=== PATIENT | female | born 1970 | race Caucasian/White ===

== ENCOUNTER 2016-08-18 15:06 | Emergency (ER) | payer MEDICAID, OTHER ==
[~2016-08-18] VITALS: Ht 170.2 cm; Wt 120.0 kg
[~2016-08-18 15:06] MED LIST: ATOR40TA49 PO; BUSP10 PO; GABA600T PO; HYDR-3580 PO; HYDR1CAP30 PO; LATU80TA PO; LEVO50TA4 PO; LURA20TA PO; MORP1INJ45 PO; OMEP20TA39 PO; SERT-132 PO; VITA60003
[2016-08-18 15:08] VITALS: BP 137/68; PULSE 92; RESP 14; TEMP 98.3; O2SAT 96
--- NOTE | 2016-08-18 16:47 | RADRPT ---
EXAM DATE/TIME: 08/18/2016 16:39 [facility] COMPARISON: No previous studies available for comparison. INDICATIONS : Right hand, fifth digit pain after fall in shower. MEDICAL HISTORY : None. SURGICAL HISTORY : None. ENCOUNTER: Initial ACUITY: 1 day PAIN SCORE: 7/10 LOCATION: Right hand, distal fifth digit FINDINGS: Examination of the fifth digit of the right hand demonstrates no evidence of fracture or dislocation. No radiopaque foreign bodies are seen. The soft tissues are intact. CONCLUSION: Unremarkable examination of the right fifth finger. Chandler Mead MD on August 18, 2016 at 16:45 Board Certified Radiologist. This report was verified electronically.
--- NOTE | 2016-08-18 16:58 | RADRPT ---
EXAM DATE/TIME: 08/18/2016 16:32 [facility] COMPARISON: No previous studies available for comparison. INDICATIONS : Pelvic pain after fall in shower. MEDICAL HISTORY : None. SURGICAL HISTORY : None. ENCOUNTER: Initial ACUITY: 1 day PAIN SCORE: 7/10 LOCATION: Bilateral pelvis FINDINGS: A single frontal view of the pelvis demonstrates no evidence of fracture. The bony pelvic ring is in tact. Bony mineralization is normal. The soft tissues are intact. Mild to moderate arthropathy is seen in joints. There is joint space narrowing with subchondral scler osis and mild marginal spurring. CONCLUSION: No evidence of acute fracture. Mild to moderate hip arthropathy. Troy Baugh MD on August 18, 2016 at 16:55 Board Certified Radiologist. This report was verified electronically.
--- NOTE | 2016-08-18 17:00 | RADRPT ---
EXAM DATE/TIME: 08/18/2016 16:33 [facility] COMPARISON: No previous studies available for comparison. INDICATIONS : Lower back pain after fall in shower. MEDICAL HISTORY : None. SURGICAL HISTORY : None. ENCOUNTER: Initial ACUITY: 1 day PAIN SCORE: 7/10 LOCATION: Bilateral lower back FINDINGS: There are five non-rib bearing vertebral bodies. The vertebral bodies are in normal alignment withou t evidence of subluxation or scoliosis. Mild to moderate degenerative disc disease is noted at L4-5 a nd L5-S1. The posterior elements are intact without evidence of spondylolysis. Mild to moderate facet arthropathy is identified at L4-5 and L5-S1. There is joint space narrowing with mild subchondral sc lerosis. The pedicles are intact. Bony mineralization is normal. No fracture is identified. CONCLUSION: Mild to moderate degenerative disc disease and facet arthropathy in the lower lumbar spine. No acute abnormality noted. Troy Baugh MD on August 18, 2016 at 16:57 Board Certified Radiologist. This report was verified electronically.
--- NOTE | 2016-08-18 17:17 | PD ---
HPI Chief Complaint: Back/ Neck Pain or Injury Time Seen by Provider: 15:47 Travel History International Travel<30 days: No Contact w/Intl Traveler<30days: No Traveled to known affect area: No History of Present Illness HPI This Is a 46-year-old woman presents to the emergency department complaining of pelvic pain after she fell in the bathtub last night. Pain is deep in the pelvis. Multiple back surgeries in the past. Pain is worse on the left side. She has some poor function left leg ever since her multiple back surgeries. She is no numbness or tingling. No weakness. No other complaints. History Past Medical History Narrative Medical Multiple back surgeries Tetanus Vaccination: < 5 Years Influenza Vaccination: Yes LMP: 07/26/16 Menopausal: Yes : 1 Para: 1 Social History Alcohol Use: No Tobacco Use: No Allergies-Medications (Allergen,Severity, Reaction): Coded Allergies: Tylenol (Verified Adverse Reaction, Intermediate, ELEVATED LIVER ENZYMES, 08/18/16) *MDRO Multi-Drug Resistant Organism (Verified Adverse Reaction, Unknown, ) MRSA finger 2004. MRSA PCR Screen negative 02/27/15. Reported Meds & Prescriptions Reported Meds & Active Scripts Active Levothyroxine (Levothyroxine Sodium) 50 Mcg Tab 50 Mcg PO DAILY must get labs done before next refill Z.0.hm Bceradcrmp39 20 Mg Tab 20 Mg PO DAILY Z.0.lipitor 40 Mg T4 40 Mg Tab 40 Mg PO HS Reported Z.4.morphine Sulfat1 15 Mg Tab 15 Mg PO TID Buspar 10 Mg Ta10 Mg 10 Mg Tab 10 Mg PO BID Yhbuon25 M1 80 Mg Tab 80 Mg PO DAILY Z.0.adecro62 Mg 20 Mg Tab 20 Mg PO DAILY TAKE WITH FOOD (350 CALORIES OR MORE) Vitamin E6000 Unit 6,000 Unit Cre 400 DAILY Z.0.hydroxyzine Pam2 25 Mg Cap 25 Mg PO Q8H PRN Z.0.sertraline Hcl50 50 Mg Tab 1 Tab PO DAILY Z.0.lortab 7.10/3250 1 Tab 1 Tab PO TID Z.0.wxcnsggalb711 M1 600 Mg Tab 800 Mg PO TID Review of Systems Except as stated in HPI: all other systems reviewed are Neg Physical Exam Narrative GENERAL: Well-developed, well-nourished, no acute distress. SKIN: Warm and dry. CARDIOVASCULAR: Warm and well perfused. RESPIRATORY: Normal rate and effort. MUSCULOSKELETAL: Normal appearance of back and bilateral lower extremities. No ecchymosis, swelling, bruising. No rashes. Normal muscle bulk and tone. NEUROLOGICAL: Strength full 5/5 and equal in bilateral lower extremities in proximal and distal muscle groups. 5/5 in large toe flexion and extension. Sensation is intact to light touch throughout. Reflexes symmetric. No clonus. She also has pain in her right pinky. She has some limited range of motion in the PIP joint. No obvious deformity. PSYCHIATRIC: Appropriate mood and affect; insight and judgment normal. Data Data Last Documented VS Vital Signs Date Time Temp Pulse Resp B/P Pulse Ox O2 Delivery O2 Flow Rate FiO2 08/18/16 16:04 18 08/18/16 15:08 98.3 92 137/68 96 Room Air Orders Pelvis, Ap Only (Routine) (08/18/16 ) Spine, Lumbar Comp W/Obliq (08/18/16 ) Finger ([id number]) (08/18/16 ) MDM Medical Decision Making Medical Screen Exam Complete: Yes Emergency Medical Condition: Yes Interpretation(s) Right finger x-ray negative X-ray pelvis negative for fracture. X-ray lumbar spine: No acute abnormality Differential Diagnosis Fracture, contusion, other Narrative Course 46-year-old woman with pain in her groin and pelvis without sort of low back following a fall. Looks well. Check x-rays. Suspect negative. Diagnosis Primary Impression: Back pain Additional Instructions: Continue current medications. Follow-up with her primary doctor in the next 2-4 days. Return to the emergency department for any new or worsening symptoms. Med/Other Pt SpecificInfo: No Change to Meds Disposition: 01 DISCHARGE HOME Condition: Stable Jhonny Trevino MD Aug 18, 2016 17:17
== END 2016-08-18 17:54 | disposition home or self-care (01) ==
LOC: NEPB 15:06
DX: M54.5 Low back pain (principal); R10.2 Pelvic and perineal pain; Z87.39 Personal history of other diseases of the musculoskeletal system and connective tissue; W18.2XXA Fall in (into) shower or empty bathtub, initial encounter
CPT/HCPCS: 72110; 72170; 73140; 99284